=== PATIENT | male | born 1960 | race Caucasian/White ===

== ENCOUNTER 2020-04-07 12:00 | Outpatient (CLI) | payer BC, SELFPAY ==
[2020-04-07 12:53] LABS: Basophils # 0.1 10^3/uL (0.0-0.1); Basophils % 0.8 %; Eosinophils # 0.2 10^3/uL (0.0-0.8); Eosinophils % 1.8 %; Hematocrit 45.4 % (42.0-52.0); Hemoglobin 14.8 g/dL (11.7-16.6); Lymphocytes # 2.4 10^3/uL (0.8-4.8); Lymphocytes % 26.6 %; Mean Corpuscular HGB Conc 32.6 g/dL (30.0-36.0); Mean Corpuscular Hemoglobin 30.6 pg (28.0-34.0); Mean Corpuscular Volume 93.8 fL (80-94); Mean Platelet Volume 10.1 fL (7.4-10.4); Monocytes # 0.6 10^3/uL (0.2-0.9); Monocytes % 6.5 %; Neutrophils # 5.7 10^3/uL (1.8-7.7); Neutrophils % 64.1 %; Nucleated Red Blood Cells % 0 %; Platelet Count 261 10^3/cmm (130-400); Red Blood Count 4.84 10^6/uL (4.1-5.3); Red Cell Distribution Width 13.2 % (12.1-15.1); White Blood Count 8.9 10^3/uL (4.0-10.0)
[2020-04-07 13:09] LABS: Alanine Aminotransferase 21 U/L (0-41); Albumin Level 4.5 g/dL (3.5-5.2); Alkaline Phosphatase 117 IU/L (40-130); Anion Gap 14.2 (5-19); Aspartate Amino Transferase 15 U/L (0-40); Blood Urea Nitrogen 16 mg/dL (8-23); Calcium 9.2 mg/dL (8.5-10.5); Carbon Dioxide 27 mmol/L (22-29); Chloride 104 mmol/L (98-107); Globulin 2.4 g/dL (1.3-4.6); Glomerular Filtration Rate 98.3 mL/min (90-130); Glucose 84 mg/dL (65-115); Osmolality Calculated 288 mOsm/kg (285-295); Potassium 4.2 mmol/L (3.5-5.1); Sodium 141 mmol/L (136-145); Total Bilirubin 0.4 mg/dL (0.15-1.2); Total Protein 6.9 g/dL (6.6-8.7)
--- NOTE | 2020-04-10 15:48 | ONC FU_ITS ---
Dr. Friedman Patient Follow-Up Note Patient: Jhon Briones Unit #: [id number]: 1960 Dicatated By: Rafa Friedman M.D.Date of Visit:Apr 07, 2020 Onc Med Follow-up/Prog Note Chief Complaint: Rectal cancer. History of Present Illness: This is a 60 year-old man with moderately differentiated adenocarcinoma of the rectum, stage IIIA (T2, N1a, M0). He had seen initially by Dr. Moreno in September 2017 because of an incarcerated umbilical hernia. He had recommended a screening colonoscopy prior to undergoing repair of the hernia. The colonoscopy was done on 10/17/2017. It showed a 2 cm submucosal lipoma in the cecum, a 3 mm sessile polyp in the sigmoid colon, and a 2.5 sessile mass in the rectum. The mass was not able to be completely removed. Pathology on the rectal lesion showed low-grade infiltrating adenocarcinoma. Staging CT scans on 10/25/2017 showed no evidence of metastatic disease in the chest, abdomen, or pelvis. Numerous tiny low-attenuation lesions in both hepatic lobes were felt to be too small to characterize but else to likely represent hepatic cysts. He was referred to Dr. Amador. On 10/31/2017 he underwent full-thickness transanal minimally invasive tumor resection. The margins were felt to be grossly negative. Pathology showed moderately differentiated adenocarcinoma which was invading the muscularis propria. The deep margin was uninvolved by invasive carcinoma, but there was reported involvement in the mucosal margin. Mismatch repair proteins were noted to be intact. He was seen here by Dr. Martinez on 11/10/2017. He subsequently had medical oncology consultation with Dr. Yannick Rodas at [facility]. His further evaluation there apparently included MRI, which showed a small elevated lesion with a focal extramural component concerning for remnant tumor, but indistinguishable from postoperative changes. Also noted were prominent left mesial rectal and left external iliac lymph nodes, indeterminate but concerning for metastasis. As the pathologic and clinical findings at that point were consistent with a T2, N0 lesion, it was opted to proceed with surgical resection. On 12/22/2017 proctectomy with coloanal anastomosis, left external iliac lymphadenectomy, and ileostomy placement. He also underwent repair of the umbilical hernia. Pathology showed no residual dysplasia or invasive adenocarcinoma in the rectum. There was involvement, though, in 1 of 24 lymph nodes. The external iliac lymph node dissection showed 4 lymph nodes which were negative for tumor. Postoperatively he had radiation oncology consultation. It was felt that he would be at low risk for local recurrence with a T2, N1 lesion, and postoperative radiation was not recommended. With the involved lymph node, though, he was recommended to undergo postoperative adjuvant chemotherapy. He was given adjuvant chemotherapy with oxaliplatin/Xeloda, cycle 1 beginning on 02/01/2018. I had seen him for a follow-up visit on 02/08/2018. At that time he reported having significant pain in his right arm where he had received the oxaliplatin infusion. The pain actually started during the infusion and then worsened afterwards. At the time I saw him it was beginning to subside. He also complained of fatigue, nausea, and diarrhea. He had otherwise experienced only mild neuropathy symptoms. I felt that he was not going to be able to continue further treatment by peripheral venous access, and on 02/12/2018 he underwent placement of Port-A-Cath venous access device. He was seen for a scheduled visit on 02/21/2018. He was due for cycle 2 of oxaliplatin/Xeloda, but at that time he was still feeling very poorly from a general standpoint. He is very weak and he had very poor appetite/oral intake. He had elevated white blood cell count at 14,800 and he had a decline in renal function with BUN elevated at 28 mg/dL and creatinine at 1.4 mg for deciliter. His treatment was put on hold, and he was given daily IV hydration and IV anti-emetics. He did show gradual improvement. Given the extent of his toxicities, I opted not to attempt any further treatment with oxaliplatin. He was agreeable to trying further treatment with Xeloda as a single agent. He began cycle 1 on 03/14/2018. On 03/25/2018 he was admitted to [facility] in [place], [place] with evidence of saddle pulmonary embolism. His echocardiogram showed right ventricular pressure estimated at 40.47 mmHg and dilated right ventricle, consistent with cor pulmonale. He was treated initially with Lovenox. He was then discharged home on 03/28/2018 on a apixaban 10 mg twice a day. Xeloda was stopped at day 10 of his 1st cycle. He was seen for a follow-up visit here on 04/02/2018. At that point he was on anticoagulation with a apixaban, but he continued to have significant weakness and shortness of breath. A repeat CT pulmonary angiogram on 04/30/2018 showed no evidence of pulmonary embolus. A right middle lobe soft tissue density had decreased in size compared to the study from 04/05/2018 and was felt to likely represent resolving infarct or focus of pneumonia. Small hypodensities in the left lobe of the liver were nonspecific and too small to characterize, but unchanged from previous studies. A repeat echocardiogram on 05/03/2018 showed normal left ventricular systolic function with estimated ejection fraction at 65%. There was normal right ventricular size and systolic function and normal pulmonary artery pressure. He initially continued on apixaban, but during subsequent follow-up his anticoagulation was transitioned to warfarin. He continued to complain of shortness of breath. He had further evaluation with pulmonary function studies on 05/25/2018. The interpretation was that of a mild restrictive ventilatory defect. There was no obstruction and no significant bronchodilator response. The diffusion capacity was reduced but normalized when corrected for alveolar volume. The findings were felt to be most consistent with obesity. In July 2018 he returned to the [facility] where he underwent reversal of his ostomy. His restaging CT scans of the chest, abdomen, and pelvis on 09/20/2018 showed no evidence of metastatic disease. There was continued decrease in size of a right middle lobe subpleural soft tissue attenuation focus of most likely due to resolving infarct or focal pneumonia. There was no large pulmonary embolus seen. Left perirectal subcentimeter nodules were of uncertain significance. His other medical illnesses have been limited to hypertension and degenerative arthritis. His prior surgeries have been limited to anterior cruciate ligament repair on the right, arthroscopic right knee surgery for torn meniscus, and rotator cuff repair on the right. He has a history of smoking up to 2 packs of cigarettes daily, but he quit smoking 23 years ago. He does not drink alcohol. INTERIM HISTORY: Surveillance CT scans on 09/19/2019 show no evidence of disease progression in the chest, abdomen, or pelvis. Mild chronic emphysematous changes were noted, and there was subsegmental atelectasis in the right lower lobe and right middle lobe. He continued on observation/expectant management. He is seen for a scheduled visit. He has been feeling good generally. He says his energy is pretty good. He is able to do light work. He has good appetite. He has not had fever. He does have night sweating about once a week or so. He still has some shortness of breath, mainly when he is walking uphill or with bending over. He does not have cough, and he does not complain of chest pain. He has no GI/ complaints other than occasional acid reflux. He has joint pain, mainly in the hands and knees. He does not complain of headache, and he has no focal neurologic symptoms. Medications: Albuterol Sulfate 1 ((2.5 mg/3ml) 0.083%) Nebulization solution Inhalation t.i.d., All Day Allergy 1 (10 mg) Capsule Oral daily, Ativan 1 Tablet (of 1 mg) Oral q 4 hours PRN, Claritin 1 Tablet (of 10 mg) Capsule Oral daily, Lisinopril 1 (10 mg) Tablet Oral daily, Tylenol with Codeine #4 1 (300-60 mg) Tablet Oral b.i.d. PRN, Vitamin B12 1 Tablet Oral daily, Vitamin C 1 (500 mg) Capsule Oral daily PRN, Vitamin D3 1 (1000 Units) Capsule Oral daily PRN, Xarelto 1 Tablet (of 20 mg) Oral daily Allergies: No Known Allergies. Review of Systems: Constitutional - He is feeling good and his energy continues to improve. He is able to do light work. His appetite is good and weight is up 10 pounds from last visit. No fevers. He has night sweating about once a week. ECOG score is 1, ENMT - No sinus congestion/drainage. No mouth sores. No sore throat or difficulty swallowing, Hematologic/Lymphatic - No abnormal bruising or bleeding, Respiratory - He continues to get short of breath with activity. No cough. No pleuritic pain or hemoptysis, Cardiovascular - No angina pain. No palpitations, Gastrointestinal - No nausea or vomiting. No heartburn or acid reflux. No diarrhea or constipation. No blood in the stool or black stools, Genitourinary (M) - No dysuria or hematuria. No urinary frequency. No urgency or incontinence, Musculoskeletal - He has joint pain, mainly in his hands and in his knees, Integumentary - No skin complications, Neurologic - No headache. He tends to get lightheaded with bending over. No numbness or tingling. No other focal neurologic symptoms, Psychiatric - No anxiety or depression. No insomnia. Vital Signs: Performed on Apr 07, 2020 13:45 Height - 71.00 in Weight - 243.2 lbs (HIGH) BSA - 2.29 sq.m BMI - 33.92 (HIGH) Temperature - 97.4 F (LOW) Pulse - 68 /min Respiration - 22 /min BP - 127/83 mm(hg) O2 Sat - 98 % Pain - 0 Physical Examination: Constitutional - He looks good generally, Eyes - Sclerae nonicteric. Conjunctivae clear, ENMT - No lesions noted in the oral cavity, Hematologic/Lymphatic - No cervical, clavicular, or axillary adenopathy, Respiratory - Lungs are clear with slightly diminished air movement bilaterally, Cardiovascular - Heart rhythm is regular. There is no murmur, gallop, or rub noted, Abdomen - Soft. Liver and spleen are not enlarged. There is no abdominal mass or ascites noted and there is no inguinal adenopathy, Extremities - No edema, Neurologic - No focal neurologic deficits noted. Lab/Imaging: Test performed on Apr 07, 2020 12:17 Sodium 141 mmol/L Potassium 4.2 mmol/L Chloride 104 mmol/L CO2 27 mmol/L Anion Gap 14.2 BUN 16 mg/dL Creatinine 0.8 mg/dL Cr Clearance (Est) 145.7000 mL/min eGFR 98.3 mL/min Glucose 84 mg/dL Calcium 9.2 mg/dL Protein, Total 6.9 g/dL Albumin 4.5 g/dL Globulin 2.4 g/dL Bilirubin, Total 0.4 mg/dL ALT (SGPT) 21 U/L AST (SGOT) 15 U/L Alkaline Phosphatase 117 IU/L WBC 8.9 10 3/uL RBC 4.84 10 6/uL HGB 14.8 g/dL HCT 45.4 % MCV 93.8 fL MCH 30.6 pg MCHC 32.6 g/dL RDW 13.2 % Platelet Count 261 10 3/cmm MPV 10.1 fL Neutrophils 5.7 10 3/uL Lymphocytes 2.4 10 3/uL Monocytes 0.6 10 3/uL Eosinophils 0.2 10 3/uL Basophils 0.1 10 3/uL Neutrophil % 64.1 % Lymphocyte % 26.6 % Monocyte % 6.5 % Eosinophil % 1.8 % Basophils % 0.8 % NRBC % 0 % CEA 2.0 ng/mL Impression: 1. Patient with moderately differentiated adenocarcinoma of the rectum, stage IIIA (T2, N1a, M0). His tumor was found to have intact mismatch repair proteins. 2. He underwent prostatectomy with ileostomy placement and with left external iliac lymph node dissection on 12/22/2017. The procedure also included umbilical hernia repair. His other medical illnesses include: 3. He has history of hypertension, but currently with low blood pressure. 4. Degenerative arthritis. 5. He has symptoms of benign prostatic hypertrophy. He he began postoperative adjuvant chemotherapy with oxaliplatin/Xeloda with cycle 1 on 02/01/2018. He had acute neuropathy in the right arm which started during his oxaliplatin infusion. His other side effects included fatigue, nausea, and diarrhea. He was seen for follow-up visit on 02/21/2018. At that point his neuropathy symptoms had resolved, but he continued to complain of severe weakness/fatigue. He also had nausea/anorexia. His laboratory studies showed leukocytosis and elevated BUN/creatinine. His second cycle of chemotherapy was put on hold. He improved clinically with daily IV hydration and IV anti-emetics. Given the extent of his toxicities, I opted not to attempt any further treatment with oxaliplatin. He then agreed to continue adjuvant chemotherapy with single agent Xeloda. He began cycle 1 on 03/14/2018. On 03/25/2018 he was admitted to the hospital with saddle pulmonary embolism and associated cor pulmonale. He was treated initially with Lovenox and then transitioned to apixaban 10 mg twice a day. His Xeloda was put on hold at day 10 of the 1st cycle. He had no further chemotherapy. During subsequent follow-up he has continued to complain of shortness of breath. A specific cause for that has not been determined. Repeat CT pulmonary angiogram on 04/30/2018 showed no evidence of pulmonary embolus. A repeat echocardiogram on 05/03/2018 showed normal left ventricular systolic function, normal right ventricular size and systolic function, and normal pulmonary artery pressure. Pulmonary function studies in May 2018 showed just mild restrictive defect with findings felt to be most consistent with obesity. In July 2018 he returned to [facility] for reversal of his ostomy. His surveillance CT scans in September 2018 showed no evidence of recurrent or metastatic disease, and he continued on observation/expectant management. During follow-up, he has had ongoing problems with exertional dyspnea and limited activity tolerance, but he has continued to show gradual mprovement. Overall, he appears to be doing well clinically with no evidence of recurrence of the rectal cancer. Plan: He remains on observation/expectant management for the rectal cancer. I will see him again in 6 months. In the meantime, I will check with Dr. Moreno regarding his surveillance colonoscopy schedule. Signed By: Rafa Friedman M.D. <<Signature on File>>
== END 2020-04-07 12:01 | disposition home or self-care (01) ==
LOC: ONCMED 12:03
PROVIDERS: PCP Internal Medicine; Visit Provider Internal Medicine Medical Oncology
DX: Z08 Encounter for follow-up examination after completed treatment for malignant neoplasm (principal); Z85.048 Personal history of other malignant neoplasm of rectum, rectosigmoid junction, and anus; R06.00 Dyspnea, unspecified; Z92.21 Personal history of antineoplastic chemotherapy; I10 Essential (primary) hypertension; I95.9 Hypotension, unspecified; M19.90 Unspecified osteoarthritis, unspecified site
CPT/HCPCS: 80053; 82378; 85025; G0463

== ENCOUNTER 2020-10-26 08:50 | Outpatient (CLI) | payer OTHER, MEDICARE, SELFPAY ==
[2020-10-26 09:19] LABS: Basophils # 0.1 10^3/uL (0.0-0.1); Basophils % 0.9 %; Eosinophils # 0.2 10^3/uL (0.0-0.8); Eosinophils % 2.1 %; Hematocrit 48.1 % (42.0-52.0); Hemoglobin 15.5 g/dL (11.7-16.6); Lymphocytes # 1.8 10^3/uL (0.8-4.8); Lymphocytes % 23.3 %; Mean Corpuscular HGB Conc 32.2 g/dL (30.0-36.0); Mean Corpuscular Hemoglobin 30.3 pg (28.0-34.0); Mean Corpuscular Volume 93.9 fL (80-94); Mean Platelet Volume 9.8 fL (7.4-10.4); Monocytes # 0.5 10^3/uL (0.2-0.9); Neutrophils # 5.26 10^3/uL (1.8-7.7); Neutrophils % 67.4 %; Nucleated Red Blood Cells % 0 %; Platelet Count 258 10^3/cmm (130-400); Red Blood Count 5.12 10^6/uL (4.1-5.3); Red Cell Distribution Width 12.8 % (12.1-15.1); White Blood Count 7.8 10^3/uL (4.0-10.0)
[2020-10-26 09:40] LABS: Alanine Aminotransferase 20 U/L (0-41); Albumin Level 4.4 g/dL (3.5-5.2); Alkaline Phosphatase 132 IU/L (40-130); Anion Gap 12.7 (5-19); Aspartate Amino Transferase 16 U/L (0-40); Blood Urea Nitrogen 13 mg/dL (8-23); Carbon Dioxide 30 mmol/L (22-29); Chloride 102 mmol/L (98-107); Glomerular Filtration Rate 98.3 mL/min (90-130); Glucose 86 mg/dL (65-115); Osmolality Calculated 291 mOsm/kg (285-295); Potassium 3.7 mmol/L (3.5-5.1); Sodium 141 mmol/L (136-145); Total Bilirubin 0.4 mg/dL (0.15-1.2); Total Protein 7.4 g/dL (6.6-8.7)
--- NOTE | 2020-10-26 09:42 | CT_ITS ---
WS: [id number] CT CHEST, ABDOMEN, AND PELVIS TECHNIQUE: Contrast-enhanced CT of the chest, abdomen, and pelvis with coronal and sagittal reformatt ed images. CLINICAL INFORMATION: COLON CANCER COMPARISON: Prior CT 12 5019, 12 6018, 6 21,018, and 6 ,018 DLP: 2745.[address] scans at [facility] use at least one of these dose optimization techniques: automat ed exposure control; mA and/or kV adjustment per patient size (includes targeted exams where dose is matched to clinical indication); or iterative reconstruction. CT CHEST: Lungs are well aerated. No acute pulmonary infiltrates. No focal consolidation or pleural fluid. Subsegmental atelectasis in the lower lobes. No suspicious p ulmonary parenchymal abnormality. Normal caliber abdominal aorta. No mediastinal or hilar lymphadenopathy. No axillary lymphadenopathy. CT ABDOMEN AND PELVIS: Diffuse fatty infiltration liver. Normal gallbladder. Normal portal vein and splenic vein. Normal GE junction. Normal spleen. Adrenal glands are normal. No hydronephrosis in either kidney. Normal renal parenchymal enhancement. Pelvic phleboliths. No periaortic or retroperitoneal lymphadenopathy. One or 2 previous described perirectal nodules are unchanged the largest measuring 5 mm eccentric to the le ft. No evidence of small or large bowel obstruction. No free fluid in the pelvis. No inguinal lymphadenop athy. Hypertrophic changes thoracic spine. Disc space narrowing worse L4-L5 and L5-S1. CT/CT chest abd pel w con* IMPRESSION: 1. No adenopathy in the chest abdomen or pelvis. 2. No evidence of progressive disease in the chest abdomen or pelvis. 3. 5 mm left perirectal nodule unchanged. 4. Lungs are well aerated. No acute pulmonary infiltrates. 5. Mild diffuse fatty infiltration liver. 6. Normal renal parenchymal enhancement. No hydronephrosis. 7. No free fluid in the abdomen or pelvis.
[2020-10-26] MEDS: iohexol 300 mg/mL 100 mL Btl IV (10:54)
[2020-10-26] MEDS: iohexol 300 mg/mL 50 mL Btl PO (10:55)
[2020-10-26 11:31] LABS: Carcinoembryonic Antigen 2.3 ng/mL (0.0-4.7)
--- NOTE | 2020-10-30 19:21 | ONC FU_ITS ---
Dr. Friedman Patient Follow-Up Note Patient: Jhon Briones Unit #: [id number]: 1960 Dicatated By: Rafa Friedman M.D.Date of Visit:Oct 26, 2020 Onc Med Follow-up/Prog Note Chief Complaint: Rectal cancer. History of Present Illness: This is a 60 year-old man with moderately differentiated adenocarcinoma of the rectum, stage IIIA (T2, N1a, M0). He had seen initially by Dr. Moreno in September 2017 because of an incarcerated umbilical hernia. He had recommended a screening colonoscopy prior to undergoing repair of the hernia. The colonoscopy was done on 10/17/2017. It showed a 2 cm submucosal lipoma in the cecum, a 3 mm sessile polyp in the sigmoid colon, and a 2.5 sessile mass in the rectum. The mass was not able to be completely removed. Pathology on the rectal lesion showed low-grade infiltrating adenocarcinoma. Staging CT scans on 10/25/2017 showed no evidence of metastatic disease in the chest, abdomen, or pelvis. Numerous tiny low-attenuation lesions in both hepatic lobes were felt to be too small to characterize but else to likely represent hepatic cysts. He was referred to Dr. Amador. On 10/31/2017 he underwent full-thickness transanal minimally invasive tumor resection. The margins were felt to be grossly negative. Pathology showed moderately differentiated adenocarcinoma which was invading the muscularis propria. The deep margin was uninvolved by invasive carcinoma, but there was reported involvement in the mucosal margin. Mismatch repair proteins were noted to be intact. He was seen here by Dr. Martinez on 11/10/2017. He subsequently had medical oncology consultation with Dr. Yannikc Rodas at [facility]. His further evaluation there apparently included MRI, which showed a small elevated lesion with a focal extramural component concerning for remnant tumor, but indistinguishable from postoperative changes. Also noted were prominent left mesial rectal and left external iliac lymph nodes, indeterminate but concerning for metastasis. As the pathologic and clinical findings at that point were consistent with a T2, N0 lesion, it was opted to proceed with surgical resection. On 12/22/2017 proctectomy with coloanal anastomosis, left external iliac lymphadenectomy, and ileostomy placement. He also underwent repair of the umbilical hernia. Pathology showed no residual dysplasia or invasive adenocarcinoma in the rectum. There was involvement, though, in 1 of 24 lymph nodes. The external iliac lymph node dissection showed 4 lymph nodes which were negative for tumor. Postoperatively he had radiation oncology consultation. It was felt that he would be at low risk for local recurrence with a T2, N1 lesion, and postoperative radiation was not recommended. With the involved lymph node, though, he was recommended to undergo postoperative adjuvant chemotherapy. He was given adjuvant chemotherapy with oxaliplatin/Xeloda, cycle 1 beginning on 02/01/2018. I had seen him for a follow-up visit on 02/08/2018. At that time he reported having significant pain in his right arm where he had received the oxaliplatin infusion. The pain actually started during the infusion and then worsened afterwards. At the time I saw him it was beginning to subside. He also complained of fatigue, nausea, and diarrhea. He had otherwise experienced only mild neuropathy symptoms. I felt that he was not going to be able to continue further treatment by peripheral venous access, and on 02/12/2018 he underwent placement of Port-A-Cath venous access device. He was seen for a scheduled visit on 02/21/2018. He was due for cycle 2 of oxaliplatin/Xeloda, but at that time he was still feeling very poorly from a general standpoint. He is very weak and he had very poor appetite/oral intake. He had elevated white blood cell count at 14,800 and he had a decline in renal function with BUN elevated at 28 mg/dL and creatinine at 1.4 mg for deciliter. His treatment was put on hold, and he was given daily IV hydration and IV anti-emetics. He did show gradual improvement. Given the extent of his toxicities, I opted not to attempt any further treatment with oxaliplatin. He was agreeable to trying further treatment with Xeloda as a single agent. He began cycle 1 on 03/14/2018. On 03/25/2018 he was admitted to [facility] in [place], [place] with evidence of saddle pulmonary embolism. His echocardiogram showed right ventricular pressure estimated at 40.47 mmHg and dilated right ventricle, consistent with cor pulmonale. He was treated initially with Lovenox. He was then discharged home on 03/28/2018 on a apixaban 10 mg twice a day. Xeloda was stopped at day 10 of his 1st cycle. He was seen for a follow-up visit here on 04/02/2018. At that point he was on anticoagulation with a apixaban, but he continued to have significant weakness and shortness of breath. A repeat CT pulmonary angiogram on 04/30/2018 showed no evidence of pulmonary embolus. A right middle lobe soft tissue density had decreased in size compared to the study from 04/05/2018 and was felt to likely represent resolving infarct or focus of pneumonia. Small hypodensities in the left lobe of the liver were nonspecific and too small to characterize, but unchanged from previous studies. A repeat echocardiogram on 05/03/2018 showed normal left ventricular systolic function with estimated ejection fraction at 65%. There was normal right ventricular size and systolic function and normal pulmonary artery pressure. He initially continued on apixaban, but during subsequent follow-up his anticoagulation was transitioned to warfarin. He continued to complain of shortness of breath. He had further evaluation with pulmonary function studies on 05/25/2018. The interpretation was that of a mild restrictive ventilatory defect. There was no obstruction and no significant bronchodilator response. The diffusion capacity was reduced but normalized when corrected for alveolar volume. The findings were felt to be most consistent with obesity. In July 2018 he returned to the [facility] where he underwent reversal of his ostomy. His restaging CT scans of the chest, abdomen, and pelvis on 09/20/2018 showed no evidence of metastatic disease. There was continued decrease in size of a right middle lobe subpleural soft tissue attenuation focus of most likely due to resolving infarct or focal pneumonia. There was no large pulmonary embolus seen. Left perirectal subcentimeter nodules were of uncertain significance. His other medical illnesses have been limited to hypertension and degenerative arthritis. His prior surgeries have been limited to anterior cruciate ligament repair on the right, arthroscopic right knee surgery for torn meniscus, and rotator cuff repair on the right. He has a history of smoking up to 2 packs of cigarettes daily, but he quit smoking 23 years ago. He does not drink alcohol. INTERIM HISTORY: Surveillance CT scans on 09/19/2019 show no evidence of disease progression in the chest, abdomen, or pelvis. Mild chronic emphysematous changes were noted, and there was subsegmental atelectasis in the right lower lobe and right middle lobe. He continued on observation/expectant management. Surveillance CT scans on 10/26/2020 showed no evidence of recurrent or progressive disease in the chest, abdomen, or pelvis. There was mild diffuse fatty infiltration of the liver. A 5 mm left perirectal nodule appears unchanged. He is seen for a followup visit. He has been feeling pretty good generally. His energy is still just so-so. He is able to do light work. ECOG score is 1. He has good appetite. He has not had fever. He does have some sweating at night, typically every 3-4 nights. He has some cough associated with sinus drainage. He also has some shortness of breath, but his breathing is the same. He does not complain of chest pain. He still occasionally has nausea. It is managed adequately with lorazepam. Bowel function has been okay. He has occasionally had a little blood in the stool ever since his surgery. He has no complaints. He has some joint pain, mainly in the hands and knees. He has no focal neurologic symptoms. Medications: Albuterol Sulfate 1 ((2.5 mg/3ml) 0.083%) Nebulization solution Inhalation t.i.d., All Day Allergy 1 (10 mg) Capsule Oral daily, Ativan 1 Tablet (of 1 mg) Oral q 4 hours PRN, Claritin 1 Tablet (of 10 mg) Capsule Oral daily, Lisinopril 1 (10 mg) Tablet Oral daily, Tylenol with Codeine #4 1 (300-60 mg) Tablet Oral b.i.d. PRN, Vitamin B12 1 Tablet Oral daily, Vitamin C 1 (500 mg) Capsule Oral daily PRN, Vitamin D3 1 (1000 Units) Capsule Oral daily PRN, Xarelto 1 Tablet (of 20 mg) Oral daily Allergies: No Known Allergies. Vital Signs: Performed on Oct 26, 2020 15:31 Height - 71.00 in Weight - 249.4 lbs (HIGH) BSA - 2.32 sq.m BMI - 34.78 (HIGH) Temperature - 97.7 F (LOW) Pulse - 68 /min Respiration - 18 /min BP - 138/92 mm(hg) O2 Sat - 96 % Pain - 0 Physical Examination: Constitutional - He looks good generally, Eyes - Sclerae nonicteric. Conjunctivae clear, ENMT - No lesions noted in the oral cavity, Hematologic/Lymphatic - No cervical, clavicular, or axillary adenopathy, Respiratory - Lungs are clear with slightly diminished air movement bilaterally, Cardiovascular - Heart rhythm is regular. There is no murmur, gallop, or rub noted, Abdomen - Soft. Liver and spleen are not enlarged. There is no abdominal mass or ascites noted and there is no inguinal adenopathy, Extremities - No edema, Neurologic - No focal neurologic deficits noted. Lab/Imaging: Test performed on Oct 26, 2020 09:09 Sodium 141 mmol/L Potassium 3.7 mmol/L Chloride 102 mmol/L CO2 30 mmol/L Anion Gap 12.7 BUN 13 mg/dL Creatinine 0.8 mg/dL Cr Clearance (Est) 145.7000 mL/min eGFR 98.3 mL/min Glucose 86 mg/dL Osmolality - Calculated 291 mOsm/kg Calcium 9.0 mg/dL Protein, Total 7.4 g/dL Albumin 4.4 g/dL Globulin 3.0 g/dL Bilirubin, Total 0.4 mg/dL ALT (SGPT) 20 U/L AST (SGOT) 16 U/L Alkaline Phosphatase 132 IU/L WBC 7.8 10 3/uL RBC 5.12 10 6/uL HGB 15.5 g/dL HCT 48.1 % MCV 93.9 fL MCH 30.3 pg MCHC 32.2 g/dL RDW 12.8 % Platelet Count 258 10 3/cmm MPV 9.8 fL Neutrophils 5.26 10 3/uL Lymphocytes 1.8 10 3/uL Monocytes 0.5 10 3/uL Eosinophils 0.2 10 3/uL Basophils 0.1 10 3/uL Neutrophil % 67.4 % Lymphocyte % 23.3 % Monocyte % 6.0 % Eosinophil % 2.1 % Basophils % 0.9 % NRBC % 0 % CEA 2.3 ng/mL Historic Problem List: 1. Moderately differentiated adenocarcinoma of the rectum, stage IIIA (T2, N1a, M0). His tumor was found to have intact mismatch repair proteins. 2. He underwent proctatectomy with ileostomy placement and with left external iliac lymph node dissection on 12/22/2017. The procedure also included umbilical hernia repair. 3. He began adjuvant chemotherapy with oxaliplatin/Xeloda in January 2018. It was stopped after 1 cycle due to multiple toxicities, including severe neuropathy. 4. Further adjuvant chemotherapy with Xeloda was attempted, but stopped during the first cycle when he was admitted to the hospital with saddle pulmonary embolism with associated cor pulmonale. He was then followed on observation/expectant management. 4. He has history of hypertension. 5. Degenerative arthritis. 6.. He has had symptoms of benign prostatic hypertrophy. Problems Addressed with this Encounter and Plan: 1. Moderately differentiated adenocarcinoma of the rectum, stage IIIA (T2, N1a, M0). His tumor was found to have intact mismatch repair proteins. He underwent proctatectomy with ileostomy placement and with left external iliac lymph node dissection on 12/22/2017. He had very limited course of adjuvant chemotherapy due to multiple toxicities. He has since then been following observation/expectant management. During follow-up he has continued to have shortness of breath and fatigue, but his overall clinical status remains stable, and thus far there has been no evidence of recurrence of the rectal cancer. He has had a little bit of rectal bleeding ever since his surgery, and he does need a follow-up colonoscopy. This will be scheduled with Dr. Moreno. I will see him again in 6 months. In the meantime, he does report having some difficulty with insomnia, and he will be given a prescription for trazodone to take 50 mg at bedtime. 2. He developed saddle pulmonary embolus with cor pulmonale during adjuvant chemotherapy. He remains chronically anticoagulated with apixaban. Signed By: Rafa Friedman M.D. <<Signature on File>>
== END 2020-10-26 08:51 | disposition home or self-care (01) ==
LOC: RAD 08:52 → ONCMED 08:59
PROVIDERS: PCP Internal Medicine; Visit Provider Internal Medicine Medical Oncology
DX: C20 Malignant neoplasm of rectum (principal); G62.0 Drug-induced polyneuropathy; T45.1X5A Adverse effect of antineoplastic and immunosuppressive drugs, initial encounter; K66.0 Peritoneal adhesions (postprocedural) (postinfection); I10 Essential (primary) hypertension; M19.90 Unspecified osteoarthritis, unspecified site; N40.0 Benign prostatic hyperplasia without lower urinary tract symptoms; K76.0 Fatty (change of) liver, not elsewhere classified; I26.02 Saddle embolus of pulmonary artery with acute cor pulmonale; R53.83 Other fatigue; Z92.21 Personal history of antineoplastic chemotherapy; Z79.899 Other long term (current) drug therapy
CPT/HCPCS: 36415; 71260; 74177; 80053; 82378; 85025; 99214; Q9967

== ENCOUNTER → 2020-11-19 09:21 | Outpatient (BNVA) | payer OTHER, MEDICARE, SELFPAY | PROVIDERS: PCP Internal Medicine; Visit Provider Surgery | DX: Z20.828 Contact with and (suspected) exposure to other viral communicable diseases (principal) | CPT/HCPCS: 87635 ==

== ENCOUNTER 2020-11-24 06:54 | Day surgery (SDC) | payer OTHER, MEDICARE, SELFPAY ==
[2020-11-20 14:36] VITALS: BMI 35.1
[2020-11-24 07:28] VITALS: BP 158/111; PULSE 127; RESP 18; TEMP 36.1; O2SAT 96
[2020-11-24] MEDS: sodium chloride 0.9% 1,000 ML 30 ML IV (07:42)
--- NOTE | 2020-11-24 07:55 | ANES.PREANE2 ---
Pre-Anesthetic Assessment Pre-Anesthetic Assessment: Height/Weight: Height 1.75 m Weight 107.955 kg Temp Pulse Resp BP Pulse Ox 97.0 F L 127 H 18 158/111 96 11/24/20 07:28 11/24/20 07:28 11/24/20 07:28 11/24/20 07:28 11/24/20 07:28 Preop Diagnosis: screening colonoscopy Proposed Procedure: Operation Date: 11/24/20 08:30 Proposed Procedures p Colonoscopy 92475 K92.1(Not Applicable) - Pastor Moreno MD Was Beta Dipak taken within 24 hours: N/A Last intake: Intake Last Liquid Date 11/23/20 Last Liquid Time 20:00 Last Solid Date 11/22/20 Last Solid Time 18:00 Social: Social History: No alcohol and No tobacco Exam: Pre-Anes Outpt Exam: alert, oriented x 3, clear to auscultation bilaterally and regular rate & rhythm Airway: Submandibular: WNL Cervical ROM: WNL MP: 2 Dentition: Full Pulmonary: Pulmonary: COPD CV/HEM: CV/HEM: HTN GI: GI: GERD Metabolic: Metabolic: Morbid obesity Anesthetic Plan: ASA status: 3 Anesthesia: MAC Risk of > 500 ml blood loss (7ml/kg in children): No Meds/Allergies Current Medications: Current Medications Generic Name Dose Route Start Last Admin Trade Name Freq PRN Reason Stop Dose Admin Sodium Chloride 1,000 mls @ 30 ml s/hr 11/24/20 07:15 11/24/20 07:42 Sodium Chloride 0.9% IV 11/25/20 07:14 30 mls/hr .Q24H ELLIOTT Administration PFSH Anesthesia PFSH: Medical History (Updated 11/06/20 @ 16:01 by Pastor Moreno MD) Chronic anticoagulation HTN (hypertension), benign Pulmonary embolism Rectal cancer Surgical History History of colonoscopy (~2018) History of low anterior resection of rectum (~2018) History of reversal of ileostomy (~2018) History of right knee surgery History of umbilical hernia repair Data Anesthesia Cardiac Studies: No Data to Display
--- NOTE | 2020-11-24 08:42 | W.PM.OPSUD ---
Surgery/Procedure H&P Update DATE OF PROCEDURE: November 24, 2020 DATE H&P PERFORMED: 11/06/20 H&P UPDATE INFORMATION: I have reviewed H&P completed within last 30 days, I have examined patient prior to procedure and No changes to prior documentation PREOP DIAGNOSIS: screening colonoscopy PLANNED PROCEDURE: Operation Date: 11/24/20 08:30 Proposed Procedures p Colonoscopy 62481 K92.1(Not Applicable) - Pastor Moreno MD
[2020-11-24 09:05] VITALS: BP 122/87; PULSE 95; RESP 16; TEMP 36.4; O2SAT 95
[2020-11-24 09:21] VITALS: BP 134/84; PULSE 81; RESP 16; O2SAT 95
--- NOTE | 2020-11-24 16:12 | ANE.PACU2 ---
Inpatient post-anesthesia follow up: Airway intact: Yes Vital signs: Temperature 97.5 F Pulse Rate 81 Respiratory Rate 16 Blood Pressure 134/84 Pulse Oximetry 95 Oxygen Delivery Me thod Room Air Oxygen Flow Rate Fraction of Inspir ed Oxygen Hydration adequate: Yes Nausea and vomiting: No Pain level: 1 Mental status: Baseline
== END 2020-11-24 09:37 | disposition home or self-care (01) ==
PROVIDERS: PCP Internal Medicine; Visit Provider Surgery
PROC: 0DJD8ZZ Inspection of Lower Intestinal Tract, Via Natural or Artificial Opening Endoscopic (ICD-10-PCS; CPT 45378; principal; 2020-11-24 08:30)
DX: Z12.11 Encounter for screening for malignant neoplasm of colon (principal); K63.89 Other specified diseases of intestine; Z85.048 Personal history of other malignant neoplasm of rectum, rectosigmoid junction, and anus; I10 Essential (primary) hypertension; J44.9 Chronic obstructive pulmonary disease, unspecified
CPT/HCPCS: 12345; 45378; J2704; J7030

== ENCOUNTER 2021-02-24 08:02 | Outpatient (CLI) | payer OTHER, MEDICARE, SELFPAY ==
--- NOTE | 2021-02-24 08:45 | USCV_ITS ---
Jhon Briones Age: 61 Gender: M : 1960 Exam Date: 02/24/2021 08:30 Ordering Phys: Nohemi Kimball MD ([email or web address]) Technologist: Shilpa Finch [place] [facility] [place]: CHEST PAIN BP: 158 / 84 HR: 70 Rhythm: Sinus Technical Quality: Adequate MEASUREMENTS (Male / Female) Normal Values 2D ECHO LV Diastolic Diameter PLAX 3.8 cm 4.2 - 5.9 / 3.9 - 5.3 cm LV Systolic Diameter PLAX 2.6 cm LV Chamber Size 4.0 cm IVS Diastolic Thickness 1.0 cm 0.6 - 1.0 / 0.6 - 0.9 cm IVS Systolic Thickness 1.7 cm LVPW Diastolic Thickness 1.4 cm 0.6 - 1.0 / 0.6 - 0.9 cm LVPW Systolic Thickness 2.1 cm RV Chamber Size 2.2 cm LVOT Diameter 2.1 cm LV Ejection Fraction 2D Teich 59.7 % LV Ejection Fraction MOD 2C 65.3 % LV Ejection Fraction 2C AL 65.4 % LA Diameter 3.8 cm LA Width 3.2 cm LA Height 3.2 cm RA Width 2.0 cm RA Height 4.3 cm Aorta at Sinotubular Diameter 3.4 cm M-MODE LV Diastolic Diameter MM 5.3 cm 4.2 - 5.9 / 3.9 - 5.3 cm LV Systolic Diameter MM 3.1 cm LV Ejection Fraction MM Teich 73.2 % IVS Diastolic Thickness MM 0.9 cm 0.6 - 1.0 / 0.6 - 0.9 cm IVS Systolic Thickness MM 1.3 cm LVPW Diastolic Thickness MM 0.9 cm 0.6 - 1.0 / 0.6 - 0.9 cm LVPW Systolic Thickness MM 1.6 cm Aortic Annulus Diameter 3.2 cm LA Ao Ratio MM 1.3 MV E Point Septal Separation 0.8 cm DOPPLER AV Peak Velocity 112.7 cm/s LVOT Peak Velocity 84.7 cm/s AV Area Cont Eq vti 2.9 cm squared AV Area Cont Eq pk 2.6 cm squared MV Area PHT 3.0 cm squared Mitral E to A Ratio 0.8 MV E' Velocity 68.0 cm/s TR Peak Velocity 186.4 cm/s TR Peak Gradient 13.9 mmHg TV Peak E Velocity 67.0 cm/s PV Peak Velocity 77.0 cm/s RV Acceleration Time 0.2 s RV Ejection Time 0.3 s RV AcT/ET 0.5 FINDINGS Left Ventricle Normal left ventricular size and systolic function, EF 56 %. No regional wall motion abnormalities. Grade I/IV diastolic dysfunction (abnormal relaxation filling pattern), normal to mildly elevated filling pressures. Right Ventricle The right ventricle is normal in size and function. Right Atrium The right atrium is normal in size. Left Atrium The left atrium is normal in size. Mitral Valve No gross morphologic abnormalities were noted Aortic Valve No gross morphologic abnormalities were noted Tricuspid Valve No gross morphologic abnormalities were noted Pulmonic Valve Pulmonic valve not well visualized. Pericardium Normal pericardium without effusion. Aorta Normal ascending aorta dimension. CONCLUSIONS Normal left ventricular size and systolic function, EF 56 %. No regional wall motion abnormalities. Grade I/IV diastolic dysfunction (abnormal relaxation filling pattern), normal to mildly elevated filling pressures. No significant stenotic or regurgitant lesions. Normal cardiac chamber sizes. There is no pericardial effusion. Compared to the study from 05/03/2018, there may not be a significant change Corrected copy of the study from 02/24/2021 Dr Nohemi Kimball MD FAC (Electronically Signed) Final Date: 25 Feb 2021 15:01 Amended: 01 Mar 2021 09:45 C
== END 2021-02-24 08:03 | disposition home or self-care (01) ==
LOC: RAD 08:09
PROVIDERS: PCP Internal Medicine; Visit Provider Internal Medicine Cardiovascular Disease
DX: R07.9 Chest pain, unspecified (principal)
CPT/HCPCS: 93306

== ENCOUNTER 2021-02-24 12:00 | Outpatient (CLI) | payer OTHER, MEDICARE, SELFPAY | END 2021-02-24 12:01 | disposition home or self-care (01) | LOC: SLEEP 02-26 09:11 | PROVIDERS: PCP Internal Medicine; Visit Provider Internal Medicine Cardiovascular Disease | DX: I50.9 Heart failure, unspecified (principal); I26.99 Other pulmonary embolism without acute cor pulmonale | CPT/HCPCS: 94762 ==

== ENCOUNTER 2021-02-26 07:16 | Outpatient (CLI) | payer OTHER, MEDICARE, SELFPAY ==
[2021-02-26 07:30] VITALS: BMI 35.4
--- NOTE | 2021-02-26 08:30 | ECG_ITS ---
[facility] Test Date: 2021-02-26 Pat Name: Jhon Briones Department: Room: Gender: Male Mba Internship: : 1960 Requested By: Nohemi Kimball Order Number: [id number] Kelvin MD: Nohemi Kimball M.D. Interpretive Statements NAME OF STUDY: EXERCISE SESTAMIBI STRESS TEST INDICATION: Sob/cp, PROCEDURE: The baseline electrocardiogram showed [normal sinus rhythm with incomplete right bundle branch block pattern. At the baseline, the patient's blood pressure was 134/104 mm Hg with a heart rate of 93. The patient exercised for 5 minutes and 14 seconds on a standard Eugenio protocol. Patient attained a maximum heart rate of 144 beats per minute(91% of the maximum predicted heart rate) with a blood pressure at the peak exercise of 207/119 mm Hg. The EKG at the peak exercise revealed no significant changes. Patient did not have any chest pain or any significant arrhythmis with the exercise Sestamibi was injected 1 minute prior to the peak exercise During the recovery phase, there were no new changes. Blood pressure at the end of the recovery phase was 156/107 mm Hg with a heart rate of 94 per minute. CONCLUSION: 1. No significant EKG changes with the treadmill exercise 2. No exercise-induced chest pain or cardiac arrhythmia. 3. Hypertensive response to exercise 4. Impaired impaired exercise tolerance, attained a maximum of 7.0 METs 5. Sestamibi/Sestamibi perfusion results pending; see separate report. Electronically Signed On 02-26-2021 12:55:46 CDT by Nohemi Kimball M.D. [id number]
--- NOTE | 2021-02-26 08:31 | NMCV_ITS ---
NM renaldo perf SPECT r/s* [id number] Jhon Briones Age: 61 Gender: M : 1960 Exam Date: 02/26/2021 08:31 Ordering Phys: Nohemi Kimball MD ([email or web address]) Technologist: JOSIE Hodgson Exam Location: [facility] Indications: SOB CP STRESS TEST [facility] IMAGE PROTOCOL Rest/Stress 1 Exercise Day Radiopharmaceutical Dose (mCi) Administration Site Administered by Rest: Tc-99m 11.0 IV JOSIE Hodgson Sestamibi Stress:Tc-99m 32.7 IV JOSIE Kauffman Sestamibi Rest: 26-Feb-2021 60 Discovery 630 Stress: 26-Feb-2021 15 Discovery 630 Radiopharmaceutical was injected at 87 % maximum heart rate. Images obtained in supine and prone position. SPECT RESULTS Technical Quality: Excellent Raw Data Analysis: Normal Image Corrections: No attenuation or motion correction applied Summed Stress Score: 7 Summed Rest Score: 23 Summed Difference Score: 0 PERFUSION FINDINGS Moderate to large area of severely decreases uptake in the basal mid and apical inferior, basal and mid inferolateral segments. No significant reversibility was noted in these regions. FUNCTIONAL RESULTS (calculated via Gated SPECT) Stress Image LV EF (%): 68 Stress EDV (mL):93 TID: 0.95 Stress ESV (mL):30 FUNCTIONAL FINDINGS: Segmental wall motion analysis revealing no gross wall motion abnormalities IMPRESSIONS 1. Myocardial perfusion may revealing moderate to large areas of persistent decreased tracer uptake in the inferior and inferolateral regions, suggestive of myocardial scarring versus attenuation artifacts. 2. Normal LV ejection fraction 68%. 3. LV wall motion analysis revealing no gross wall motion normalities. 4. Normal LV volume. No significant coronary ischemia, based on the above findings Dr Nohemi Kimball MD [facility] (Electronically Signed) Final Date: 26 Feb 2021 19:04 S
[2021-02-26 09:38] VITALS: BP 156/107; PULSE 94
== END 2021-02-26 07:17 | disposition home or self-care (01) ==
LOC: CDL 07:17
PROVIDERS: PCP Internal Medicine; Visit Provider Internal Medicine Cardiovascular Disease
DX: R06.02 Shortness of breath (principal); R07.9 Chest pain, unspecified; I10 Essential (primary) hypertension
CPT/HCPCS: 78452; 93017; A9500

== ENCOUNTER 2021-05-06 11:34 | Outpatient (CLI) | payer OTHER, MEDICARE, SELFPAY ==
[2021-05-06 12:08] LABS: Basophils # 0.1 10^3/uL (0.0-0.1); Basophils % 0.9 %; Eosinophils # 0.4 10^3/uL (0.0-0.8); Eosinophils % 3.8 %; Hematocrit 46.6 % (42.0-52.0); Hemoglobin 14.7 g/dL (11.7-16.6); Lymphocytes # 2.6 10^3/uL (0.8-4.8); Lymphocytes % 27.5 %; Mean Corpuscular HGB Conc 31.5 g/dL (30.0-36.0); Mean Corpuscular Hemoglobin 30.2 pg (28.0-34.0); Mean Corpuscular Volume 95.7 fL (80-94); Monocytes # 0.6 10^3/uL (0.2-0.9); Monocytes % 5.9 %; Neutrophils # 5.74 10^3/uL (1.8-7.7); Neutrophils % 61.7 %; Nucleated Red Blood Cells % 0 %; Platelet Count 253 10^3/cmm (130-400); Red Blood Count 4.87 10^6/uL (4.1-5.3); Red Cell Distribution Width 12.7 % (12.1-15.1); White Blood Count 9.3 10^3/uL (4.0-10.0)
[2021-05-06 12:33] LABS: Alanine Aminotransferase 17 U/L (0-41); Alkaline Phosphatase 125 IU/L (40-130); Aspartate Amino Transferase 17 U/L (0-40); Blood Urea Nitrogen 18 mg/dL (8-23); Calcium 8.3 mg/dL (8.5-10.5); Carbon Dioxide 27 mmol/L (22-29); Chloride 103 mmol/L (98-107); Glomerular Filtration Rate 75.7 mL/min (90-130); Glucose 105 mg/dL (65-115); Osmolality Calculated 292 mOsm/kg (285-295); Sodium 140 mmol/L (136-145); Total Bilirubin 0.4 mg/dL (0.15-1.2)
[2021-05-06 13:27] LABS: Carcinoembryonic Antigen 2.1 ng/mL (0.0-4.7)
--- NOTE | 2021-05-10 06:34 | ONC FU_ITS ---
Dr. Friedman Patient Follow-Up Note Patient: Jhon Briones Unit #: [id number]: 1960 Dicatated By: Rafa Friedman M.D.Date of Visit:May 06, 2021 Onc Med Follow-up/Prog Note Chief Complaint: Rectal cancer. History of Present Illness: This is a 61 year-old man with moderately differentiated adenocarcinoma of the rectum, stage IIIA (T2, N1a, M0). He had seen initially by Dr. Moreno in September 2017 because of an incarcerated umbilical hernia. He had recommended a screening colonoscopy prior to undergoing repair of the hernia. The colonoscopy was done on 10/17/2017. It showed a 2 cm submucosal lipoma in the cecum, a 3 mm sessile polyp in the sigmoid colon, and a 2.5 sessile mass in the rectum. The mass was not able to be completely removed. Pathology on the rectal lesion showed low-grade infiltrating adenocarcinoma. Staging CT scans on 10/25/2017 showed no evidence of metastatic disease in the chest, abdomen, or pelvis. Numerous tiny low-attenuation lesions in both hepatic lobes were felt to be too small to characterize but else to likely represent hepatic cysts. He was referred to Dr. Amador. On 10/31/2017 he underwent full-thickness transanal minimally invasive tumor resection. The margins were felt to be grossly negative. Pathology showed moderately differentiated adenocarcinoma which was invading the muscularis propria. The deep margin was uninvolved by invasive carcinoma, but there was reported involvement in the mucosal margin. Mismatch repair proteins were noted to be intact. He was seen here by Dr. Martinez on 11/10/2017. He subsequently had medical oncology consultation with Dr. Yannick Rodas at [facility]. His further evaluation there apparently included MRI, which showed a small elevated lesion with a focal extramural component concerning for remnant tumor, but indistinguishable from postoperative changes. Also noted were prominent left mesial rectal and left external iliac lymph nodes, indeterminate but concerning for metastasis. As the pathologic and clinical findings at that point were consistent with a T2, N0 lesion, it was opted to proceed with surgical resection. On 12/22/2017 proctectomy with coloanal anastomosis, left external iliac lymphadenectomy, and ileostomy placement. He also underwent repair of the umbilical hernia. Pathology showed no residual dysplasia or invasive adenocarcinoma in the rectum. There was involvement, though, in 1 of 24 lymph nodes. The external iliac lymph node dissection showed 4 lymph nodes which were negative for tumor. Postoperatively he had radiation oncology consultation. It was felt that he would be at low risk for local recurrence with a T2, N1 lesion, and postoperative radiation was not recommended. With the involved lymph node, though, he was recommended to undergo postoperative adjuvant chemotherapy. He was given adjuvant chemotherapy with oxaliplatin/Xeloda, cycle 1 beginning on 02/01/2018. I had seen him for a follow-up visit on 02/08/2018. At that time he reported having significant pain in his right arm where he had received the oxaliplatin infusion. The pain actually started during the infusion and then worsened afterwards. At the time I saw him it was beginning to subside. He also complained of fatigue, nausea, and diarrhea. He had otherwise experienced only mild neuropathy symptoms. I felt that he was not going to be able to continue further treatment by peripheral venous access, and on 02/12/2018 he underwent placement of Port-A-Cath venous access device. He was seen for a scheduled visit on 02/21/2018. He was due for cycle 2 of oxaliplatin/Xeloda, but at that time he was still feeling very poorly from a general standpoint. He is very weak and he had very poor appetite/oral intake. He had elevated white blood cell count at 14,800 and he had a decline in renal function with BUN elevated at 28 mg/dL and creatinine at 1.4 mg for deciliter. His treatment was put on hold, and he was given daily IV hydration and IV anti-emetics. He did show gradual improvement. Given the extent of his toxicities, I opted not to attempt any further treatment with oxaliplatin. He was agreeable to trying further treatment with Xeloda as a single agent. He began cycle 1 on 03/14/2018. On 03/25/2018 he was admitted to in [place], [place] with evidence of saddle pulmonary embolism. His echocardiogram showed right ventricular pressure estimated at 40.47 mmHg and dilated right ventricle, consistent with cor pulmonale. He was treated initially with Lovenox. He was then discharged home on 03/28/2018 on a apixaban 10 mg twice a day. Xeloda was stopped at day 10 of his 1st cycle. He was seen for a follow-up visit here on 04/02/2018. At that point he was on anticoagulation with a apixaban, but he continued to have significant weakness and shortness of breath. A repeat CT pulmonary angiogram on 04/30/2018 showed no evidence of pulmonary embolus. A right middle lobe soft tissue density had decreased in size compared to the study from 04/05/2018 and was felt to likely represent resolving infarct or focus of pneumonia. Small hypodensities in the left lobe of the liver were nonspecific and too small to characterize, but unchanged from previous studies. A repeat echocardiogram on 05/03/2018 showed normal left ventricular systolic function with estimated ejection fraction at 65%. There was normal right ventricular size and systolic function and normal pulmonary artery pressure. He initially continued on apixaban, but during subsequent follow-up his anticoagulation was transitioned to warfarin. He continued to complain of shortness of breath. He had further evaluation with pulmonary function studies on 05/25/2018. The interpretation was that of a mild restrictive ventilatory defect. There was no obstruction and no significant bronchodilator response. The diffusion capacity was reduced but normalized when corrected for alveolar volume. The findings were felt to be most consistent with obesity. In July 2018 he returned to the [facility] where he underwent reversal of his ostomy. His restaging CT scans of the chest, abdomen, and pelvis on 09/20/2018 showed no evidence of metastatic disease. There was continued decrease in size of a right middle lobe subpleural soft tissue attenuation focus of most likely due to resolving infarct or focal pneumonia. There was no large pulmonary embolus seen. Left perirectal subcentimeter nodules were of uncertain significance. His other medical illnesses have been limited to hypertension and degenerative arthritis. His prior surgeries have been limited to anterior cruciate ligament repair on the right, arthroscopic right knee surgery for torn meniscus, and rotator cuff repair on the right. He has a history of smoking up to 2 packs of cigarettes daily, but he quit smoking 23 years ago. He does not drink alcohol. INTERIM HISTORY: Surveillance CT scans on 09/19/2019 show no evidence of disease progression in the chest, abdomen, or pelvis. Mild chronic emphysematous changes were noted, and there was subsegmental atelectasis in the right lower lobe and right middle lobe. Surveillance CT scans on 10/26/2020 showed no evidence of recurrent or progressive disease in the chest, abdomen, or pelvis. There was mild diffuse fatty infiltration of the liver. A 5 mm left perirectal nodule appeared unchanged. He had a negative surveillance colonoscopy in November 2020. He is seen for a followup visit. He has been feeling pretty good generally. He still has somewhat limited activity tolerance due to shortness of breath. His ECOG score is 1. He has good appetite. He has not had fever. He has occasional night sweating, not as bad now. He has some cough associated with sinus drainage. He has shortness of breath with activity. He does not have resting dyspnea or chest pain. He has no GI or complaints. He has some arthritis in his hands and knees. He does not complain of headache or dizziness. He has no focal neurologic symptoms. Medications: Albuterol Sulfate 1 ((2.5 mg/3ml) 0.083%) Nebulization solution Inhalation t.i.d., All Day Allergy 1 (10 mg) Capsule Oral daily, Ativan 1 Tablet (of 1 mg) Oral q 4 hours PRN, Claritin 1 Tablet (of 10 mg) Capsule Oral daily, Lisinopril 1 (10 mg) Tablet Oral daily, Tylenol with Codeine #4 1 (300-60 mg) Tablet Oral b.i.d. PRN, Vitamin B12 1 Tablet Oral daily, Vitamin C 1 (500 mg) Capsule Oral daily PRN, Vitamin D3 1 (1000 Units) Capsule Oral daily PRN, Xarelto 1 Tablet (of 20 mg) Oral daily Allergies: No Known Allergies. Vital Signs: Performed on May 06, 2021 13:38 Height - 71.00 in Weight - 243 lbs (LOW) BSA - 2.29 sq.m BMI - 33.89 (HIGH) Temperature - 97.2 F (LOW) Pulse - 74 /min Respiration - 18 /min BP - 153/76 mm(hg) (HIGH) O2 Sat - 96 % Pain - 0 Fatigue - 0 Physical Examination: Constitutional - He looks good generally, Eyes - Sclerae nonicteric. Conjunctivae clear, ENMT - No lesions noted in the oral cavity, Hematologic/Lymphatic - No cervical, clavicular, or axillary adenopathy, Respiratory - Lungs are clear with slightly diminished air movement bilaterally, Cardiovascular - Heart rhythm is regular. There is no murmur, gallop, or rub noted, Abdomen - Soft. Liver and spleen are not enlarged. There is no abdominal mass or ascites noted and there is no inguinal adenopathy, Extremities - No edema, Neurologic - No focal neurologic deficits noted. Lab/Imaging: Test performed on May 06, 2021 11:55 Sodium 140 mmol/L Potassium 4.0 mmol/L Chloride 103 mmol/L CO2 27 mmol/L Anion Gap 14.0 BUN 18 mg/dL Creatinine 1.0 mg/dL Cr Clearance (Est) 115.0900 mL/min eGFR 75.7 mL/min Glucose 105 mg/dL Osmolality - Calculated 292 mOsm/kg Calcium 8.3 mg/dL Protein, Total 7.0 g/dL Albumin 4.0 g/dL Globulin 3.0 g/dL Bilirubin, Total 0.4 mg/dL ALT (SGPT) 17 U/L AST (SGOT) 17 U/L Alkaline Phosphatase 125 IU/L WBC 9.3 10 3/uL RBC 4.87 10 6/uL HGB 14.7 g/dL HCT 46.6 % MCV 95.7 fL MCH 30.2 pg MCHC 31.5 g/dL RDW 12.7 % Platelet Count 253 10 3/cmm MPV 10.0 fL Neutrophils 5.74 10 3/uL Lymphocytes 2.6 10 3/uL Monocytes 0.6 10 3/uL Eosinophils 0.4 10 3/uL Basophils 0.1 10 3/uL Neutrophil % 61.7 % Lymphocyte % 27.5 % Monocyte % 5.9 % Eosinophil % 3.8 % Basophils % 0.9 % NRBC % 0 % CEA 2.1 ng/mL Problem List: 1. Moderately differentiated adenocarcinoma of the rectum, stage IIIA (T2, N1a, M0). His tumor was found to have intact mismatch repair proteins. 2. He underwent proctatectomy with ileostomy placement and with left external iliac lymph node dissection on 12/22/2017. The procedure also included umbilical hernia repair. 3. He began adjuvant chemotherapy with oxaliplatin/Xeloda in January 2018. It was stopped after 1 cycle due to multiple toxicities, including severe neuropathy. 4. Further adjuvant chemotherapy with Xeloda was attempted, but stopped during the first cycle when he was admitted to the hospital with saddle pulmonary embolism with associated cor pulmonale. He was then followed on observation/expectant management. 4. He has history of hypertension. 5. Degenerative arthritis. 6.. He has had symptoms of benign prostatic hypertrophy. Problems Addressed with this Encounter and Plan: 1. Patient with moderately differentiated adenocarcinoma of the rectum, stage IIIA (T2, N1a, M0). His tumor was found to have intact mismatch repair proteins. He underwent proctatectomy with ileostomy placement and with left external iliac lymph node dissection on 12/22/2017. He had very limited course of adjuvant chemotherapy due to multiple toxicities. He was then followed on observation/expectant management. During follow-up he has continued to have some shortness of breath and fatigue, but his performance status has gradually improved. Overall, he appears to be doing well clinically with no evidence of recurrence of the rectal cancer. 2. He developed saddle pulmonary embolus with cor pulmonale during adjuvant chemotherapy. He remains chronically anticoagulated with apixaban. Signed By: Rafa Friedman M.D. <<Signature on File>>
== END 2021-05-06 11:35 | disposition home or self-care (01) ==
LOC: ONCMED 11:38
PROVIDERS: PCP Internal Medicine; Visit Provider Internal Medicine Medical Oncology
DX: Z08 Encounter for follow-up examination after completed treatment for malignant neoplasm (principal); Z85.048 Personal history of other malignant neoplasm of rectum, rectosigmoid junction, and anus; Z90.49 Acquired absence of other specified parts of digestive tract; Z92.21 Personal history of antineoplastic chemotherapy; Z86.79 Personal history of other diseases of the circulatory system; M19.90 Unspecified osteoarthritis, unspecified site; Z79.01 Long term (current) use of anticoagulants; Z79.899 Other long term (current) drug therapy
CPT/HCPCS: 36415; 80053; 82378; 85025; G0463

== ENCOUNTER 2021-10-29 08:45 | Outpatient (CLI) | payer MEDICARE, SELFPAY ==
--- NOTE | 2021-10-29 08:54 | CT_ITS ---
WS: [id number] CT CHEST, ABDOMEN AND PELVIS WITH CONTRAST. HISTORY: RECTAL CANCER TECHNIQUE: Contiguous 5 mm axial imaging performed through the chest, abdomen and pelvis with IV cont rast, oral contrast has been provided. Coronal and sagittal reformats chest. Coronal and sagittal ref ormats through the abdomen and pelvis. All CT scans at [facility] use at least one of these d ose optimization techniques: automated exposure control; mA and/or kV adjustment per patient size (in cludes targeted exams where dose is matched to clinical indication); or iterative reconstruction. CONTRAST: Omnipaque 300; 95 mL IV. DLP: 2408.32 mGy.cm COMPARISON: 10/26/[address]: Mild elevation of the RIGHT hemidiaphragm is stable. Linear areas of atelectasis at the [place] g bases bilaterally. No suspicious nodule or pneumonia. Very mild subsegmental atelectasis in the RIG HT lower lung field. No mediastinal or hilar lymphadenopathy. Partially calcified subcarinal lymph no [place]. Mild enlargement of the LEFT heart chambers. No pericardial or pleural effusion. Mild atheroscle rosis aorta. Normal size pulmonary artery. Abdomen CT: Mild diffuse hepatic steatosis. There are a few scattered 2 to 3 mm low-attenuation lesio ns within the liver. These appear to present on prior studies, stable since 09/20/2018. No metastatic disease identified. No bile duct dilatation. Gallbladder is normal size. Normal pancreas and spleen. Normal size adrenal glands. Kidneys are enhancing symmetrically. No obstruction or solid mass. Very m ild atherosclerosis aorta with no aneurysm. No GI tract obstruction. The appendix is normal. Previously described perirectal fat stranding on the RIGHT is longer present. Stable, small mesorectal lymph node on the RIGHT. No new or increasing emir opathy. Small fat-containing umbilical hernia. Pelvic CT: No free fluid or adenopathy in the pelvis. Urinary bladder is moderately well distended. V ken minimal prostate enlargement. No osteoblastic or osteolytic bone disease. Mild disc space narrowing at L5-S1. Stable bone islands i n the RIGHT hip. CT/CT chest abd pel w con* IMPRESSION: 1. No evidence for metastatic disease within the chest, abdomen or pelvis. 2. Very small mesorectal lymph node on the RIGHT is stable. No new or increasi ng lymphadenopathy in the pelvis. 3. Stable mild elevation RIGHT hemidiaphragm.
[2021-10-29 09:56] LABS: Blood Urea Nitrogen 15 mg/dL (8-23)
[2021-10-29] MEDS: iohexol 300 mg/mL 100 mL Btl IV (10:57)
[2021-10-29] MEDS: iohexol 300 mg/mL 50 mL Btl PO (10:58)
== END 2021-10-29 08:46 | disposition home or self-care (01) ==
LOC: RAD 08:52
PROVIDERS: PCP Internal Medicine; Visit Provider Internal Medicine Medical Oncology
DX: C20 Malignant neoplasm of rectum (principal); I26.02 Saddle embolus of pulmonary artery with acute cor pulmonale
CPT/HCPCS: 71260; 74177; 82565; 84520

== ENCOUNTER 2021-11-22 09:18 | Outpatient (CLI) | payer MEDICARE, SELFPAY ==
[2021-11-22 09:41] LABS: Basophils # 0.1 10^3/uL (0.0-0.1); Basophils % 0.5 %; Eosinophils # 0.2 10^3/uL (0.0-0.8); Eosinophils % 2.1 %; Hematocrit 47.1 % (42.0-52.0); Hemoglobin 15.1 g/dL (11.7-16.6); Lymphocytes # 1.7 10^3/uL (0.8-4.8); Lymphocytes % 17.4 %; Mean Corpuscular HGB Conc 32.1 g/dL (30.0-36.0); Mean Corpuscular Hemoglobin 30.5 pg (28.0-34.0); Mean Corpuscular Volume 95.2 fl (80-94); Mean Platelet Volume 9.7 fL (7.4-10.4); Monocytes # 0.6 10^3/uL (0.2-0.9); Monocytes % 6.4 %; Neutrophils # 7.04 10^3/uL (1.8-7.7); Neutrophils % 73.2 %; Nucleated Red Blood Cells % 0 %; Platelet Count 273 10^3/cmm (130-400); Red Blood Count 4.95 10^6/uL (4.1-5.3); Red Cell Distribution Width 12.7 % (12.1-15.1); White Blood Count 9.6 10^3/uL (4.0-10.0)
[2021-11-22 10:20] LABS: Carcinoembryonic Antigen 2.4 ng/mL (0.0-4.7)
[2021-11-22 10:31] LABS: Alanine Aminotransferase 18 U/L (0-41); Albumin Level 4.5 g/dL (3.5-5.2); Alkaline Phosphatase 144 IU/L (40-130); Aspartate Amino Transferase 19 U/L (0-40); Blood Urea Nitrogen 16 mg/dL (8-23); Calcium 8.5 mg/dL (8.5-10.5); Carbon Dioxide 27 mmol/L (22-29); Chloride 103 mmol/L (98-107); Globulin 2.6 g/dL (1.3-4.6); Glomerular Filtration Rate 85.5 mL/min (90-130); Glucose 102 mg/dL (65-115); Osmolality Calculated 293 mOsm/kg (285-295); Sodium 141 mmol/L (136-145); Total Bilirubin 0.4 mg/dL (0.15-1.2); Total Protein 7.1 g/dL (6.6-8.7)
[2021-11-22 10:33] LABS: Anion Gap 15.3 (5-19); Potassium 4.3 mmol/L (3.5-5.1)
--- NOTE | 2021-11-26 14:50 | ONC FU_ITS ---
Dr. Friedman Patient Follow-Up Note Patient: Jhon Briones Unit #: [id number]: [id number] Dicatated By: Rafa Friedman M.D.Date of Visit:Nov 22, 2021 Onc Med Follow-up/Prog Note Chief Complaint: Rectal cancer. History of Present Illness: This is a 61 year-old man with moderately differentiated adenocarcinoma of the rectum, stage IIIA (T2, N1a, M0). He had seen initially by Dr. Moreno in September 2017 because of an incarcerated umbilical hernia. He had recommended a screening colonoscopy prior to undergoing repair of the hernia. The colonoscopy was done on 10/17/2017. It showed a 2 cm submucosal lipoma in the cecum, a 3 mm sessile polyp in the sigmoid colon, and a 2.5 sessile mass in the rectum. The mass was not able to be completely removed. Pathology on the rectal lesion showed low-grade infiltrating adenocarcinoma. Staging CT scans on 10/25/2017 showed no evidence of metastatic disease in the chest, abdomen, or pelvis. Numerous tiny low-attenuation lesions in both hepatic lobes were felt to be too small to characterize but else to likely represent hepatic cysts. He was referred to Dr. Amador. On 10/31/2017 he underwent full-thickness transanal minimally invasive tumor resection. The margins were felt to be grossly negative. Pathology showed moderately differentiated adenocarcinoma which was invading the muscularis propria. The deep margin was uninvolved by invasive carcinoma, but there was reported involvement in the mucosal margin. Mismatch repair proteins were noted to be intact. He was seen here by Dr. Martinez on 11/10/2017. He subsequently had medical oncology consultation with Dr. Yannick Rodas at [facility]. His further evaluation there apparently included MRI, which showed a small elevated lesion with a focal extramural component concerning for remnant tumor, but indistinguishable from postoperative changes. Also noted were prominent left mesial rectal and left external iliac lymph nodes, indeterminate but concerning for metastasis. As the pathologic and clinical findings at that point were consistent with a T2, N0 lesion, it was opted to proceed with surgical resection. On 12/22/2017 proctectomy with coloanal anastomosis, left external iliac lymphadenectomy, and ileostomy placement. He also underwent repair of the umbilical hernia. Pathology showed no residual dysplasia or invasive adenocarcinoma in the rectum. There was involvement, though, in 1 of 24 lymph nodes. The external iliac lymph node dissection showed 4 lymph nodes which were negative for tumor. Postoperatively he had radiation oncology consultation. It was felt that he would be at low risk for local recurrence with a T2, N1 lesion, and postoperative radiation was not recommended. With the involved lymph node, though, he was recommended to undergo postoperative adjuvant chemotherapy. He was given adjuvant chemotherapy with oxaliplatin/Xeloda, cycle 1 beginning on 02/01/2018. I had seen him for a follow-up visit on 02/08/2018. At that time he reported having significant pain in his right arm where he had received the oxaliplatin infusion. The pain actually started during the infusion and then worsened afterwards. At the time I saw him it was beginning to subside. He also complained of fatigue, nausea, and diarrhea. He had otherwise experienced only mild neuropathy symptoms. I felt that he was not going to be able to continue further treatment by peripheral venous access, and on 02/12/2018 he underwent placement of Port-A-Cath venous access device. He was seen for a scheduled visit on 02/21/2018. He was due for cycle 2 of oxaliplatin/Xeloda, but at that time he was still feeling very poorly from a general standpoint. He is very weak and he had very poor appetite/oral intake. He had elevated white blood cell count at 14,800 and he had a decline in renal function with BUN elevated at 28 mg/dL and creatinine at 1.4 mg for deciliter. His treatment was put on hold, and he was given daily IV hydration and IV anti-emetics. He did show gradual improvement. Given the extent of his toxicities, I opted not to attempt any further treatment with oxaliplatin. He was agreeable to trying further treatment with Xeloda as a single agent. He began cycle 1 on 03/14/2018. On 03/25/2018 he was admitted to [facility] in [place], [place] with evidence of saddle pulmonary embolism. His echocardiogram showed right ventricular pressure estimated at 40.47 mmHg and dilated right ventricle, consistent with cor pulmonale. He was treated initially with Lovenox. He was then discharged home on 03/28/2018 on a apixaban 10 mg twice a day. Xeloda was stopped at day 10 of his 1st cycle. He was seen for a follow-up visit here on 04/02/2018. At that point he was on anticoagulation with a apixaban, but he continued to have significant weakness and shortness of breath. A repeat CT pulmonary angiogram on 04/30/2018 showed no evidence of pulmonary embolus. A right middle lobe soft tissue density had decreased in size compared to the study from 04/05/2018 and was felt to likely represent resolving infarct or focus of pneumonia. Small hypodensities in the left lobe of the liver were nonspecific and too small to characterize, but unchanged from previous studies. A repeat echocardiogram on 05/03/2018 showed normal left ventricular systolic function with estimated ejection fraction at 65%. There was normal right ventricular size and systolic function and normal pulmonary artery pressure. He initially continued on apixaban, but during subsequent follow-up his anticoagulation was transitioned to warfarin. He continued to complain of shortness of breath. He had further evaluation with pulmonary function studies on 05/25/2018. The interpretation was that of a mild restrictive ventilatory defect. There was no obstruction and no significant bronchodilator response. The diffusion capacity was reduced but normalized when corrected for alveolar volume. The findings were felt to be most consistent with obesity. In July 2018 he returned to the [facility] where he underwent reversal of his ostomy. His restaging CT scans of the chest, abdomen, and pelvis on 09/20/2018 showed no evidence of metastatic disease. There was continued decrease in size of a right middle lobe subpleural soft tissue attenuation focus of most likely due to resolving infarct or focal pneumonia. There was no large pulmonary embolus seen. Left perirectal subcentimeter nodules were of uncertain significance. His other medical illnesses have been limited to hypertension and degenerative arthritis. His prior surgeries have been limited to anterior cruciate ligament repair on the right, arthroscopic right knee surgery for torn meniscus, and rotator cuff repair on the right. He has a history of smoking up to 2 packs of cigarettes daily, but he quit smoking 23 years ago. He does not drink alcohol. INTERIM HISTORY: Surveillance CT scans on 09/19/2019 show no evidence of disease progression in the chest, abdomen, or pelvis. Mild chronic emphysematous changes were noted, and there was subsegmental atelectasis in the right lower lobe and right middle lobe. Surveillance CT scans on 10/26/2020 showed no evidence of recurrent or progressive disease in the chest, abdomen, or pelvis. There was mild diffuse fatty infiltration of the liver. A 5 mm left perirectal nodule appeared unchanged. He had a negative surveillance colonoscopy in November 2020. Surveillance CT scans of the chest, abdomen, and pelvis showed no evidence of metastatic disease. A very small mesorectal lymph node on the right side appeared stable. There is no new or increasing lymphadenopathy. There was mild stable elevation of the right hemidiaphragm. He is seen for a follow-up visit. He has been feeling pretty good generally. He still has some exertional dyspnea and somewhat limited activity tolerance. His ECOG score is 1. He has good appetite. He has no fever or night sweats. He has a little bit of sinus drainage, and he occasionally has cough. He does not have resting dyspnea or chest pain. He still occasionally has nausea, and recently he has been having some heartburn. Bowel and bladder function have been normal. He has some joint pain, mainly in the hands and feet. He does not complain of headache or dizziness, and he has no focal neurologic symptoms. Medications: Albuterol Sulfate 1 ((2.5 mg/3ml) 0.083%) Nebulization solution Inhalation t.i.d., All Day Allergy 1 (10 mg) Capsule Oral daily, Ativan 1 Tablet (of 1 mg) Oral q 4 hours PRN, Claritin 1 Tablet (of 10 mg) Capsule Oral daily, Lisinopril 1 (10 mg) Tablet Oral daily, Tylenol with Codeine #4 1 (300-60 mg) Tablet Oral b.i.d. PRN, Vitamin B12 1 Tablet Oral daily, Vitamin C 1 (500 mg) Capsule Oral daily PRN, Vitamin D3 1 (1000 Units) Capsule Oral daily PRN, Xarelto 1 Tablet (of 20 mg) Oral daily Allergies: No Known Allergies. Vital Signs: Performed on Nov 22, 2021 13:40 Height - 71.00 in Weight - 247.6 lbs (HIGH) BSA - 2.31 sq.m BMI - 34.53 (HIGH) Temperature - 97.5 F (LOW) Pulse - 81 /min Respiration - 18 /min BP - 162/96 mm(hg) (HIGH) O2 Sat - 95 % (LOW) Pain - 0 Fatigue - 2 Physical Examination: Constitutional - He looks good generally, Eyes - Sclerae nonicteric. Conjunctivae clear, ENMT - No lesions noted in the oral cavity, Hematologic/Lymphatic - No cervical, clavicular, or axillary adenopathy, Respiratory - Lungs sound clear, Cardiovascular - Heart rhythm is regular. There is no murmur, gallop, or rub noted, Abdomen - Soft. Liver and spleen are not enlarged. There is no abdominal mass or ascites noted and there is no inguinal adenopathy, Extremities - Slight edema, Neurologic - No focal neurologic deficits noted. Lab/Imaging: Test performed on Nov 22, 2021 09:30 Sodium 141 mmol/L Potassium 4.3 mmol/L Chloride 103 mmol/L CO2 27 mmol/L Anion Gap 15.3 BUN 16 mg/dL Creatinine 0.9 mg/dL Cr Clearance (Est) 135.19 mL/min eGFR 85.5 mL/min Glucose 102 mg/dL Osmolality - Calculated 293 mOsm/kg Calcium 8.5 mg/dL Protein, Total 7.1 g/dL Albumin 4.5 g/dL Globulin 2.6 g/dL Bilirubin, Total 0.4 mg/dL ALT (SGPT) 18 U/L AST (SGOT) 19 U/L Alkaline Phosphatase 144 IU/L WBC 9.6 10 3/uL RBC 4.95 10 6/uL HGB 15.1 g/dL HCT 47.1 % MCV 95.2 fl MCH 30.5 pg MCHC 32.1 g/dL RDW 12.7 % Platelet Count 273 10 3/cmm MPV 9.7 fL Neutrophils 7.04 10 3/uL Lymphocytes 1.7 10 3/uL Monocytes 0.6 10 3/uL Eosinophils 0.2 10 3/uL Basophils 0.1 10 3/uL Neutrophil % 73.2 % Lymphocyte % 17.4 % Monocyte % 6.4 % Eosinophil % 2.1 % Basophils % 0.5 % NRBC % 0 % CEA 2.4 ng/mL Problem List: 1. Moderately differentiated adenocarcinoma of the rectum, stage IIIA (T2, N1a, M0). His tumor was found to have intact mismatch repair proteins. 2. History of pulmonary embolism. 3. History of hypertension. 4. Degenerative arthritis. 5. He has had symptoms of benign prostatic hypertrophy. Problems Addressed with this Encounter and Plan: 1. Patient with moderately differentiated adenocarcinoma of the rectum, stage IIIA (T2, N1a, M0). His tumor was found to have intact mismatch repair proteins. He underwent proctatectomy with ileostomy placement and with left external iliac lymph node dissection on 12/22/2017. The procedure also included umbilical hernia repair. He began adjuvant chemotherapy with oxaliplatin/Xeloda in January 2018. It was stopped after 1 cycle due to multiple toxicities, including severe neuropathy. Further adjuvant chemotherapy with Xeloda was attempted, but stopped during the first cycle when he was admitted to the hospital with saddle pulmonary embolism with associated cor pulmonale. He was then followed on observation/expectant management. During follow-up there was gradual improvement in his performance status. He has continued, though, did have some exertional dyspnea and some limitation in his activity tolerance. He has otherwise been doing well clinically. Thus far there has been no evidence of recurrence of the rectal cancer. He continues on expectant management. He will be scheduled for a follow-up visit in 1 year. 2. He had an episode of major pulmonary embolism during adjuvant chemotherapy, including a saddle pulmonary embolus with associated cor pulmonale. He remains on chronic anticoagulation with apixaban. Signed By: Rafa Friedman M.D. <<Signature on File>>
== END 2021-11-22 09:19 | disposition home or self-care (01) ==
LOC: ONCMED 09:21
PROVIDERS: PCP Internal Medicine; Visit Provider Internal Medicine Medical Oncology
DX: C20 Malignant neoplasm of rectum (principal); I10 Essential (primary) hypertension; I26.99 Other pulmonary embolism without acute cor pulmonale; Z79.01 Long term (current) use of anticoagulants
CPT/HCPCS: 36415; 80053; 82378; 85025; 99214

== ENCOUNTER 2022-12-01 06:47 | Outpatient (CLI) | payer MEDICARE, SELFPAY ==
[2022-12-01] MEDS: iohexol 350 mg/mL 500 mL Btl (per mL) PO (07:11)
[2022-12-01] MEDS: iohexol 350 mg/mL 500 mL Btl (per mL) IV (07:11)
--- NOTE | 2022-12-01 11:18 | CT_ITS ---
WS: [id number] CT ABDOMEN AND PELVIS WITH CONTRAST HISTORY: rectal cancer TECHNIQUE: Imaging performed of the abdomen and pelvis with IV contrast. Single phase imaging of the abdomen. Coronal and sagittal reformats are submitted. All CT scans at [facility] use at [address] one of these dose optimization techniques: automated exposure control; mA and/or kV adjustment per patient size (includes targeted exams where dose is matched to clinical indication); or iterative re construction. IV CONTRAST: Omnipaque 350; 100 mL IV. Oral contrast: Yes. DLP: 1110.53 mGy-cm. COMPARISON: 10/29/2021 Lower thorax: Mild dependent changes at the lung bases. Heart is normal size. No hiatal hernia. Liver/biliary system: Mildly high riding RIGHT diaphragm with elevated liver. Similar to prior studie s. No metastatic disease within the liver. No bile duct dilatation. Normal portal vein. Gallbladder: Normal. No gallstones or wall thickening. No pericholecystic fluid. Pancreas: Normal size pancreas and pancreatic duct. No adjacent inflammation. Spleen: Normal size spleen. No mass or infarct. Adrenal glands: Normal. Right kidney: Normal. Left kidney: Normal. Aorta: Mild atherosclerosis with no aneurysm. Lymphadenopathy: None. Free fluid: None. GI tract: Stomach is not distended. No small bowel obstruction. Mild diffuse constipation. The append ix is normal. No acute diverticulitis or obstruction. Abdominal wall: Unremarkable abdominal wall. No hernia. Pelvis: No free fluid or adenopathy within the pelvis. No significant or enlarging lymph nodes in the pelvis. No ascites. Bones: No destructive bone lesions. Foraminal stenosis at L5-S1. Bone island proximal RIGHT femur. CT/CT abdomen pelvis w con* [id number] IMPRESSION: 1. Stable CT abdomen and pelvis. 2. No adenopathy or evidence for recurrent rectal cancer. 3. No enlarging rectal lymph nodes or ascites. 4. No metastatic lesions in the liver or adrenal glands.
== END 2022-12-01 06:48 | disposition home or self-care (01) ==
LOC: RAD 06:52
PROVIDERS: PCP Internal Medicine; Visit Provider Internal Medicine Medical Oncology
DX: C20 Malignant neoplasm of rectum (principal)
CPT/HCPCS: 71260; 74177; Q9967

== ENCOUNTER 2022-12-05 09:36 | Outpatient (CLI) | payer MEDICARE, SELFPAY ==
[2022-12-05] MEDS: iohexol 350 mg/mL 500 mL Btl (per mL) IV (10:00)
--- NOTE | 2022-12-05 12:00 | CT_ITS ---
WS: [id number] CT CHEST WITH INTRAVENOUS CONTRAST HISTORY: rectal cancer TECHNIQUE: Contiguous 5 mm axial imaging performed on the thorax. Coronal and sagittal reformats are submitted. All CT scans at [facility] use at least one of these dose optimization techniques: automated exposure control; mA and/or kV adjustment per patient size (includes targeted exams where dose is matched to clinical indication); or iterative reconstruction. CONTRAST: Omnipaque 350; 95 mL IV. DLP: 493.93 mGy.cm COMPARISON: 10/29/2021 Lungs and central airway: Mild elevation of the RIGHT hemidiaphragm is similar to the prior study. Mi ld subsegmental atelectasis at the lung bases. No mass or nodule. No pneumonia. Pleura: Normal. No pleural effusion. Heart and pericardium: Normal size. No pericardial effusion. Mediastinum and ida: No mediastinum or hilar adenopathy. Vessels: Atherosclerosis aorta. No aneurysm. Normal size pulmonary artery. Chest wall and lower neck: No soft tissue masses. Upper abdomen: Negative. Osseous structures: No destructive process. CT/CT chest w con* [id number] IMPRESSION: 1. No metastatic disease to the lungs. 2. No mediastinal or hilar adenopathy. 3. Stable mild elevation RIGHT hemidiaphragm.
== END 2022-12-05 09:37 | disposition home or self-care (01) ==
LOC: RAD 09:39
PROVIDERS: PCP Internal Medicine; Visit Provider Internal Medicine Medical Oncology
DX: C20 Malignant neoplasm of rectum (principal)
CPT/HCPCS: 71260; Q9967

== ENCOUNTER 2022-12-15 13:53 | Oncology outpatient (recurring) (ONCR) | payer MEDICARE, SELFPAY ==
[2022-12-15 15:44] LABS: Carcinoembryonic Antigen 2.4 ng/mL (0.0-4.7)
== END 2023-01-13 23:59 | disposition home or self-care (01) ==
PROVIDERS: PCP Internal Medicine; Visit Provider Internal Medicine Medical Oncology
DX: Z08 Encounter for follow-up examination after completed treatment for malignant neoplasm (principal); Z85.038 Personal history of other malignant neoplasm of large intestine; Z90.49 Acquired absence of other specified parts of digestive tract; Z90.89 Acquired absence of other organs; R53.83 Other fatigue; F41.9 Anxiety disorder, unspecified; K59.9 Functional intestinal disorder, unspecified; Z86.711 Personal history of pulmonary embolism; Z79.01 Long term (current) use of anticoagulants; Z79.899 Other long term (current) drug therapy; Z92.21 Personal history of antineoplastic chemotherapy
CPT/HCPCS: 36415; 82378; 99214

== ENCOUNTER 2025-01-13 12:39 | Oncology outpatient (recurring) (ONCR) | payer MEDICARE, SELFPAY | END 2025-01-13 23:59 | disposition home or self-care (01) | LOC: ONCMED 12:40 | PROVIDERS: PCP Internal Medicine; Visit Provider Internal Medicine Medical Oncology | DX: Z08 Encounter for follow-up examination after completed treatment for malignant neoplasm (principal); Z85.048 Personal history of other malignant neoplasm of rectum, rectosigmoid junction, and anus; Z87.891 Personal history of nicotine dependence; I26.99 Other pulmonary embolism without acute cor pulmonale; Z79.01 Long term (current) use of anticoagulants; Z92.21 Personal history of antineoplastic chemotherapy; F41.9 Anxiety disorder, unspecified; G47.00 Insomnia, unspecified; Z79.899 Other long term (current) drug therapy | CPT/HCPCS: 99214 ==